=== PATIENT | female | born 1995 ===

== ENCOUNTER 2020-09-28 08:53 | Outpatient (REF) | payer OTHER, SELFPAY ==
[2020-09-28 09:50] LABS: MANUAL DIFF FLAG NO
[2020-09-28 10:03] LABS: Basophils Percent Auto 0.4 % (0-2); Eosinophils Absolute Auto 0.1 X10*3/uL (0.0-0.4); Eosinophils Percent Auto 1.5 % (0-4); Hematocrit 41.7 % (37-47); Hemoglobin 12.9 g/dl (12.0-16.0); Imm Gran Abs Auto 0.01 X10*3/uL (0.00-0.03); Imm Gran Pct Auto 0.2 % (0.0-0.4); Lymphocytes Percent Auto 38.5 % (20-40); Mean Corpuscular HGB Conc 30.9 g/dl (31.0-35.0); Mean Corpuscular Hemoglobin 25.6 pg (27.0-33.0); Mean Corpuscular Volume 82.9 fL (80-98); Mean Platelet Volume 10.6 fL (9.4-12.3); Monocytes Absolute Auto 0.3 X10*3/uL (0.1-1.2); Monocytes Percent Auto 6.5 % (2-11); Neutrophils Absolute Auto 2.8 X10*3/uL (2.0-8.3); Neutrophils Percent Auto 52.9 % (45-73); Platelet Count 366 X10*3/uL (160-400); Red Blood Count 5.03 X10*6/uL (4.20-5.50); Red Cell Distribution Width 13.2 % (11.0-16.0); White Blood Count 5.2 X10*3/uL (4.8-10.8)
[2020-09-28 10:35] LABS: Alanine Aminotransferase 13 U/L (0-31); Albumin Level 4.2 g/dL (3.5-5.0); Alkaline Phosphatase 77 U/L (39-117); Anion Gap 13 (12-20); Aspartate Amino Transferase 12 U/L (5-31); Bilirubin Total 0.7 mg/dL (0.0-1.0); Blood Urea Nitrogen 11 mg/dL (9-16); Calcium 9.2 mg/dL (8.4-10.2); Carbon Dioxide 24 mmol/L (22-29); Chloride 105 mmol/L (96-108); Estimated Glomerular Filt Rate > 60; Glucose Random 92 mg/dL (60-115); Iron 56 mcg/dL (30-160); Percent Iron Saturation 14 % (15-50); Potassium 4.3 mmol/L (3.3-5.1); Sodium 138 mmol/L (135-145); Total Iron Binding Capacity 389 mcg/dL (228-428); Total Protein 7.3 g/dL (6.5-8.0); Unsaturated Iron Binding 333 ug/dL
[2020-09-28 10:54] LABS: Vitamin B12 494 pg/mL (200-900)
== END 2020-09-28 08:54 | disposition home or self-care (01) ==
LOC: HO.LAB 08:53
PROVIDERS: PCP Family Medicine; Visit Provider Family Medicine
DX: R53.83 Other fatigue (principal)
CPT/HCPCS: 36415; 80053; 82607; 83540; 84443; 85025

== ENCOUNTER 2021-10-09 10:09 | Outpatient (REF) | payer OTHER, SELFPAY ==
[2021-10-09 11:22] LABS: MANUAL DIFF FLAG NO
[2021-10-09 11:32] LABS: Basophils Percent Auto 0.4 % (0-2); Eosinophils Absolute Auto 0.1 X10*3/uL (0.0-0.4); Eosinophils Percent Auto 0.9 % (0-4); Hematocrit 41.1 % (37.0-47.0); Hemoglobin 12.5 g/dl (12.0-16.0); Imm Gran Abs Auto 0.02 X10*3/uL (0.00-0.03); Imm Gran Pct Auto 0.4 % (0.0-0.4); Lymphocytes Absolute Auto 2.1 X10*3/uL (1.2-4.9); Lymphocytes Percent Auto 38.1 % (20-40); Mean Corpuscular HGB Conc 30.4 g/dl (31.0-35.0); Mean Corpuscular Hemoglobin 25.7 pg (27.0-33.0); Mean Corpuscular Volume 84.4 fL (80.0-98.0); Mean Platelet Volume 10.5 fL (9.4-12.3); Monocytes Absolute Auto 0.3 X10*3/uL (0.1-1.2); Monocytes Percent Auto 5.6 % (2-11); Neutrophils Percent Auto 54.6 % (45-73); Platelet Count 383 X10*3/uL (160-400); Red Blood Count 4.87 X10*6/uL (4.20-5.50); Red Cell Distribution Width 13.7 % (11.0-16.0); White Blood Count 5.4 X10*3/uL (4.8-10.8)
[2021-10-09 12:17] LABS: Alanine Aminotransferase 14 U/L (0-31); Albumin Level 4.3 g/dL (3.5-5.0); Alkaline Phosphatase 71 U/L (39-117); Anion Gap 11 (12-20); Aspartate Amino Transferase 14 U/L (5-31); Bilirubin Total 0.7 mg/dL (0.0-1.0); Blood Urea Nitrogen 11 mg/dL (9-16); Calcium 9.5 mg/dL (8.4-10.2); Carbon Dioxide 26 mmol/L (22-29); Chloride 107 mmol/L (96-108); Cholesterol 195 mg/dL; Estimated Glomerular Filt Rate > 60; Glucose Fasting 83 mg/dL (60-99); HDL Cholesterol 57 mg/dL; LDL Cholesterol Calculated 116 mg/dl; Potassium 4.9 mmol/L (3.3-5.1); Sodium 139 mmol/L (135-145); Total Protein 7.3 g/dL (6.5-8.0); Triglycerides 114 mg/dL
== END 2021-10-09 10:10 | disposition home or self-care (01) ==
LOC: HO.WFDLDS 10:09
PROVIDERS: Visit Provider Family Medicine
DX: Z00.00 Encounter for general adult medical examination without abnormal findings (principal); Z20.822 Contact with and (suspected) exposure to COVID-19
CPT/HCPCS: 80053; 80061; 84443; 85025; U0003; U0005

== ENCOUNTER 2022-12-19 12:28 | Outpatient (REF) | payer OTHER, SELFPAY ==
[2022-12-19 14:14] LABS: MANUAL DIFF FLAG NO
[2022-12-19 14:18] LABS: Appearance Urine Clear; Color Urine Yellow; Glucose Urine UA Negative (Negative); Leukocyte Esterase Urine Negative (Negative); Nitrite Urine Negative (Negative); Urine Blood Negative (Negative); Urine Ketones Negative (Negative); Urine Protein Negative (Neg-Trace)
[2022-12-19 14:26] LABS: Basophils Percent Auto 0.5 % (0-2); Eosinophils Absolute Auto 0.1 X10*3/uL (0.0-0.4); Eosinophils Percent Auto 1.1 % (0-4); Hematocrit 39.4 % (37.0-47.0); Hemoglobin 12.1 g/dl (12.0-16.0); Imm Gran Abs Auto 0.01 X10*3/uL (0.00-0.03); Imm Gran Pct Auto 0.2 % (0.0-0.4); Lymphocytes Absolute Auto 2.1 X10*3/uL (1.2-4.9); Lymphocytes Percent Auto 30.9 % (20-40); Mean Corpuscular HGB Conc 30.7 g/dl (31.0-35.0); Mean Corpuscular Hemoglobin 25.6 pg (27.0-33.0); Mean Corpuscular Volume 83.3 fL (80.0-98.0); Mean Platelet Volume 10.9 fL (9.4-12.3); Monocytes Absolute Auto 0.5 X10*3/uL (0.1-1.2); Monocytes Percent Auto 7.2 % (2-11); Neutrophils Percent Auto 60.1 % (45-73); Platelet Count 358 X10*3/uL (160-400); Red Blood Count 4.73 X10*6/uL (4.20-5.50); Red Cell Distribution Width 13.3 % (11.0-16.0); White Blood Count 6.6 X10*3/uL (4.8-10.8)
[2022-12-19 15:18] LABS: Creatinine Urine 67.97 mg/dL; Microalbumin Urine < 5.0 mg/L
[2022-12-19 15:19] LABS: Alanine Aminotransferase 16 U/L (0-31); Albumin Level 4.1 g/dL (3.5-5.0); Alkaline Phosphatase 64 U/L (39-117); Anion Gap 11 (12-20); Aspartate Amino Transferase 14 U/L (5-31); Blood Urea Nitrogen 10 mg/dL (9-16); Calcium 9.1 mg/dL (8.4-10.2); Carbon Dioxide 27 mmol/L (22-29); Chloride 109 mmol/L (96-108); Estimated Glomerular Filt Rate > 60; Glucose Fasting 72 mg/dL (60-99); Potassium 4.6 mmol/L (3.3-5.1); Sodium 142 mmol/L (135-145); Total Protein 6.8 g/dL (6.5-8.0)
== END 2022-12-19 12:29 | disposition home or self-care (01) ==
LOC: HO.WFDLDS 12:28
PROVIDERS: Visit Provider Family Medicine
DX: Z00.00 Encounter for general adult medical examination without abnormal findings (principal); I10 Essential (primary) hypertension
CPT/HCPCS: 36415; 80053; 81003; 82043; 84443; 85025

== ENCOUNTER 2023-01-02 14:53 | Outpatient (REF) | payer OTHER, SELFPAY ==
[2023-01-03 11:38] LABS: Appearance Urine Clear; Color Urine Yellow; Glucose Urine UA Negative (Negative); Leukocyte Esterase Urine Moderate (2+) (Negative); Nitrite Urine Negative (Negative); Specific Gravity - Urine 1.015 (1.005-1.025); UMIC TRIGGER UACC YES; Urine Blood Trace (Negative); Urine Ketones Negative (Negative); Urine Protein Trace mg/dL (Neg-Trace)
[2023-01-03 11:41] LABS: Bacteria Urine None Seen (None Seen); Hyaline Casts Urine 0-2 /LPF (0-2); Squamous Epithelial Cell Urine 0-2 /HPF (0-2); UACC Culture Trigger YES; WBC Urine >50 /HPF (0-5)
== END 2023-01-02 14:54 | disposition home or self-care (01) ==
LOC: HO.LAB 14:53
PROVIDERS: Visit Provider Nurse Practitioner Family
DX: N39.0 Urinary tract infection, site not specified (principal)
CPT/HCPCS: 81001; 87086; 87088; 87186

== ENCOUNTER 2023-02-25 08:02 | Outpatient (REF) | payer OTHER, SELFPAY ==
[2023-02-25 09:08] LABS: Appearance Urine Clear; Color Urine Yellow; Glucose Urine UA Negative (Negative); Leukocyte Esterase Urine Negative (Negative); Nitrite Urine Negative (Negative); PH 7.5 (5.0-9.0); Urine Blood Negative (Negative); Urine Ketones Negative (Negative); Urine Protein Negative (Neg-Trace)
[2023-02-25 09:51] LABS: Alanine Aminotransferase 13 U/L (0-31); Albumin Level 4.2 g/dL (3.5-5.0); Alkaline Phosphatase 67 U/L (39-117); Anion Gap 12 (12-20); Aspartate Amino Transferase 12 U/L (5-31); Bilirubin Total 0.8 mg/dL (0.0-1.0); Blood Urea Nitrogen 11 mg/dL (9-16); Carbon Dioxide 26 mmol/L (22-29); Chloride 106 mmol/L (96-108); Cholesterol 202 mg/dL; Estimated Glomerular Filt Rate > 60; Glucose Fasting 90 mg/dL (60-99); HDL Cholesterol 57 mg/dL; LDL Cholesterol Calculated 128 mg/dl; Potassium 4.1 mmol/L (3.3-5.1); Sodium 140 mmol/L (135-145); Total Protein 7.3 g/dL (6.5-8.0); Triglycerides 85 mg/dL
[2023-02-25 10:06] LABS: TSH reflex Free T4 1.22 uIU/mL (0.32-4.0)
[2023-02-27 08:19] LABS: Follicle Stimulating Hormone 8.1 mIU/mL; Lutenizing Hormone 6.3 mIU/mL
[2023-03-08 15:03] LABS: Estrogen 261.1 pg/mL
== END 2023-02-25 08:03 | disposition home or self-care (01) ==
LOC: HO.LAB 08:02
PROVIDERS: Nurse Practitioner Family; PCP Family Medicine; Visit Provider Family Medicine
DX: Z00.00 Encounter for general adult medical examination without abnormal findings (principal); N39.0 Urinary tract infection, site not specified
CPT/HCPCS: 36415; 80053; 80061; 81003; 82672; 83001; 83002; 84443

== ENCOUNTER 2023-07-19 14:30 | Outpatient (AMB) | payer OTHER, SELFPAY ==
[2023-07-19 14:37] VITALS: BP 118/78; PULSE 99; O2SAT 99; BMI 41.5
--- NOTE | 2023-07-19 14:37 | MHC.PC.OV ---
Vital Signs 07/19/23 14:37 Height 5 ft 3 in Weight 234 lb 8 oz BMI 41.5 BP 118/78 Blood Pressure Location Lt brachial Position Sitting Pulse 99 Pulse Source Pulse Oximeter Pulse Oximetry (%) 99 Oxygen Delivery Method Room Air Intake Visit Reasons: Pap Smear, r/s from 05/31, see comments Intake Note: Patient is here for a pap smear, rescheduled from May. She still would like to talk about breast reduction. Also, would like STD panel. Allergies No Known Allergies [No Known Allergies*] Allergy (Verified 07/19/23 14:40) Tobacco use date assessed: 07/19/23 HPI Pap Smear, r/s from 05/31, see comments HPI Details 28 y/o female presents today for a pap smear. She reports last pap smears was fine. She?does?not?know?the?date?of?her?last?menstrual?period.??She?is?not?currently?menstruating She reports ongoing neck and shoulder pain. [facility] Family History Father Diabetes mellitus Mother IBS (irritable bowel syndrome) Sister No problems noted. Daughter No problems noted. Social History Housing: House Patient Tobacco Use Status: Former Tobacco user e-Cigarette/Vaping Use: Never Used Second Hand Smoke Exposure: No service: No Current occupational status: employed Current occupation: [employer] Current occupational exposures/hazards: No Cognitive needs: No Hearing needs: No Vision needs: No Questionnaire Thrive Questionnaire Date Thrive assessed: 12/19/22 MILA-7 AMB Questionnaire MILA-7 Date MILA - 7 assessed: 12/19/22 Source: Developed by Drs. Jack Holman, Yahaira Rocha, Terrance Esteves and colleagues, with an educational mohamud from [employer]. Physical exam (Primary Care) Vital Signs: Last Vital Signs Pulse 99 07/19/23 14:37 BP 118/78 07/19/23 14:37 Pulse Ox 99 07/19/23 14:37 Oxygen Delivery Method Room Air 07/19/23 14:37 BMI result Body Mass Index 41.5 Tobacco/Smoking Status: Tobacco use Status Tobacco use date assessed 07/19/23 07/19/23 14:51 Patient Tobacco Use Status Former Tobacco user 07/19/23 14:51 e-Cigarette/Vaping Use Never Used 07/19/23 14:51 Thrive Assessment: Date of Thrive Assessment Date Thrive assessed 12/19/22 07/19/23 14:51 General: Yes Bimanual renal exam normal bilaterally and Yes no CVA tenderness External Female Exam: normal external appearance Speculum Exam - Vagina: normal appearance of the vagina Speculum Exam - Cervix: normal appearance of the cervix Bimanual exam- vagina & uterus: normal bimanual exam, uterine size normal, uterine shape normal, non-tender and no cervical motion tenderness Bimanual Exam- Adnexa, other: normal adnexae Back/Spine/Pelvis Back: no CVA tenderness Assessment and Plan Assessment & Plan (1) Screening for cervical cancer: Code(s): Z12.4 - Encounter for screening for malignant neoplasm of cervix Plan: Patient?presents?for?Pap?smear. Most?recent?Pap?smear?greater?than?3?years?ago.??She?says?this?was?normal.??She?is?not?aware?of?when?her?last?menstrual?period?was?but?she?is?not?menstruating?today. Speculum?exam?was?normal. Good?visualization?of?cervix?and?cervical?os?which?appeared?normal. Normal?bimanual?exam?with?normal-size?uterus,?no?cervical?motion?tenderness?and?normal?adnexa?bilaterally Pap?smear?sample?will?be?sent?to?the?lab (2) Cervicalgia: Code(s): M54.2 - Cervicalgia Plan: Chronic?neck?shoulder?and?upper?back?pain?and?strain for?which?she?has?tried?medical?management?and?chiropractic?therapy?without?resolution. We?had?discussed?a?referral?to?Plastic?surgery?for?breast?reduction?in?the?past?and?patient?would?like?to?move?forward?with?this. At?this?time?I?feel?it?is?medical?necessity?and?I?will?make?that?referral?and?send?a?letter?to?[facility]?plastic?surgery?department. (3) Shoulder pain: Code(s): M25.519 - Pain in unspecified shoulder Plan: As?above Orders: Orders Pap Smear Today Z12.4 - Encounter for screening for malignant neoplasm of cervix HPV E6/E7 RFLX AIDEN 16 18/45 Today Z12.4 - Encounter for screening for malignant neoplasm of cervix Coding Level of Care Code Est Pt Level 4 (04154) Diagnoses Screening for cervical cancer Z12.4 Cervicalgia M54.2 Shoulder pain M25.519
== END 2023-07-19 15:30 | disposition home or self-care (01) ==
PROVIDERS: PCP Family Medicine; Visit Provider Family Medicine
DX: Z12.4 Encounter for screening for malignant neoplasm of cervix (principal); M54.2 Cervicalgia; M25.519 Pain in unspecified shoulder
CPT/HCPCS: 99214

== ENCOUNTER 2023-07-19 15:19 | Outpatient (REF) | payer OTHER, SELFPAY ==
[2023-07-25 21:38] LABS: HPV mRNA E6/E7 rflx Not Detected (Not Detected)
== END 2023-07-19 15:20 | disposition home or self-care (01) ==
LOC: HO.LNP 15:19
PROVIDERS: Visit Provider Family Medicine
DX: Z12.4 Encounter for screening for malignant neoplasm of cervix (principal); Z11.51 Encounter for screening for human papillomavirus (HPV)
CPT/HCPCS: 87624; 88142

== ENCOUNTER 2023-07-19 15:19 | Outpatient (REF) | payer OTHER, SELFPAY | END 2023-07-19 15:20 | disposition home or self-care (01) | LOC: HO.LAB 15:19 | PROVIDERS: Visit Provider Family Medicine | DX: Z13.89 Encounter for screening for other disorder (principal) ==

== ENCOUNTER → 2024-04-30 09:05 | Outpatient (AMB) | payer OTHER, SELFPAY ==
--- NOTE | 2024-04-30 09:03 | A.OFFPC_ITS ---
Vital Signs 04/30/24 09:17 Height 5 ft 3 in Weight 219 lb 4 oz BMI 38.8 BP 102/66 Blood Pressure Location Rt brachial Position Sitting Respiration 14 Pulse 53 Pulse Source Pulse Oximeter Pulse Oximetry (%) 99 Oxygen Delivery Method Room Air Intake Visit Reasons: annual physicals Intake Note: Physical. Requesting STD test. 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 Her primary care physician is Dr. Edwards. The patient requests routine screenings for STIs. The patient requests referral to Plastic surgery to discuss breast reduction. She has been seeing a chiropractor for over a year for upper back, lower back and neck pain. She has also lost weight. She was 234 lb 07/31/2023, and today she is 219 lb. She has done this through increasing activity and portion control. She has persistent symptoms despite these interventions. She also sees a chiropractor for right hip pain. This started bothering her about 5 years ago after childbirth. He does adjustments with her hip that are usually very beneficial. He has an appointment with him tomorrow. She declines further evaluation with imaging referral to Orthopedics at this time, but if the symptoms become more persistent or do not respond to chiropractic intervention she will follow up with me about this. ADHD, anxiety-diagnosed by therapist and psychiatrist at [facility]. Treated with Adderall 5 mg as needed. 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 She is referred to Dr. Spivey today. She would like to restart control. She was on control pills for years without adverse effects up until her . Her periods are a little irregular. She started tracking them, and they happen every 6 weeks. She is agreeable to hCG level prior to initiating OCP. Denies personal or family history of heart attacks, strokes and blood clots. She does not use tobacco products. Patient endorses chronic diarrhea. This has been going on for years. Happens about every 3 days with multiple episodes per day affected. Frequency can vary. Sometimes she can identify triggers. If she eats a little bit of parm cheese she does not have a problem, but if she eats a lot it causes diarrhea. The same thing happens with pizza and marinara sauce. No blood in stools, unexplained weight loss, constipation or abdominal pain. Her father was diagnosed recently on colonoscopy as having 9 precancerous polyps. He is 52 years old. When she takes Imodium it alleviates symptoms temporarily. There is no known family history of inflammatory bowel disease. Her mother has IBS. ROS: Constitutional: No unexplained weight loss, fever, chills, fatigue or night sweats. Eyes: No vision changes, blurry vision, double vision, eye pain, eye redness, eye discharge. ENT: No hearing loss, sneezing, congestion, runny nose or sore throat. Respiratory: No shortness of breath, cough or sputum production. Cardiovascular: No chest pain, chest pressure or chest discomfort. No palpitations or pedal edema. Gastrointestinal: No anorexia, nausea, vomiting.. No abdominal pain or blood in stool. Genitourinary: No dysuria, hematuria, urinary frequency. Neurologic: No headache, dizziness, syncope, unilateral weakness, ataxia, numbness or tingling in the extremities. Musculoskeletal: see HPI Hematologic/Lymphatics: No bleeding or bruising. Skin: No rash Endocrine: No cold or heat intolerance. No polyuria or polydipsia. Psychiatric: No SI/HI. Physical exam: Constitutional: Alert, in no distress. Head: Normocephalic. Eyes: Pupils are equal, round and reactive to light. Extraocular muscles intact. Ear, Nose and Throat: Canals clear. TMs normal. Normal nasal mucosa. No nasal discharge. No oral lesions. Neck: Supple, Full range of motion. No lymphadenopathy. No palpable thyroid masses. Respiratory: Clear to auscultation. Cardiovascular: S1 S2 regular. No murmurs. Gastrointestinal: Abdomen soft, non-tender, non-distended. Normal bowel sounds. No palpable masses. Neurologic: No focal neurological deficits. Symmetric patellar reflexes. Moves all extremities spontaneously. Sensation intact bilaterally. Skin: No rashes. Musculoskeletal: No swelling, deformity or erythema. Extremities: Warm and well perfused. No clubbing, cyanosis or edema. 3+ peripheral pulses bilaterally. Psychiatric: Normal mood and affect [facility] Medical History (Updated 04/30/24 @ 13:44 by LENNOX Overton) control counseling ADHD Family history of colonic polyps Diarrhea Macromastia Family History Father Diabetes mellitus Mother IBS (irritable bowel syndrome) Sister No problems noted. Daughter No problems noted. Social History Housing: House Patient Tobacco Use Status: Former Tobacco user e-Cigarette/Vaping Use: Never Used Second Hand Smoke Exposure: No service: No Current occupational status: employed Current occupation: [employer] Current occupational exposures/hazards: No Cognitive needs: No Hearing needs: No Vision needs: No Questionnaire PHQ-9 Over the last 2 weeks, how often have you been bothered by any of the following problems? 1. Little interest or pleasure in doing things: not at all 2. Feeling down, depressed, or hopeless: not at all 3. Trouble falling or staying asleep, or sleeping too much: several days 4. Feeling tired or having little energy: several days 5. Poor appetite or overeating: not at all 6. Feeling bad about yourself - or that you are a failure or have let yourself or your family down: not at all 7. Trouble concentrating on things, such as reading the newspaper or watching television: not at all 8. Moving or speaking so slowly that other people could have noticed. Or the opposite - being so fidgety or restless that you have been moving around a lot more than usual: not at all 9. Thoughts that you would be better off or of hurting yourself in some way: not at all Total score: 2 Depression Screening Interpretation: Positive Depression Screening Done: Yes 83988 - PHQ-9 Billing: Yes Source: Developed by Drs. Jack Holman, Yahaira Rocha, Terrance Esteves and colleagues, with an educational mohamud from [employer]. Thrive Questionnaire Date Thrive assessed: 04/30/24 I am a: Parent/Caregiver What is your living situation today?: I have a steady place to live Within the past 12 months, did the food you bought not last and you didn't have the money to get more?: Sometimes True Within the past 12 months, did you worry whether your food would run out before you got money to buy more?: Sometimes True Do you have trouble paying for medicines?: No Do you have trouble getting transportation to medical appointments?: No Do you have trouble paying your heating and electricity bill?: No Do you have trouble taking care of your child, family member or friend?: No Do you have trouble with day-to-day activities such as bathing, preparing meals, shopping, managing finances, etc.?: No Are you currently unemployed and looking for a job?: No Are you interested in more education?: No Please select the resources that you would like help with: None Currently or been in a relationship where the following occur: No concerns reported THRIVE Score: 2 AUDIT C Alcohol Use Questionnaire (AUDIT-C) 1. How often do you have a drink containing alcohol?: Monthly or less 2. How many drinks containing alcohol do you have on a typical day when you are drinking?: 1 or 2 3. How often do you have six or more drinks on one occasion?: Monthly Total Score: 3 MILA-7 AMB Questionnaire MILA-7 Date MILA - 7 assessed: 04/30/24 Feeling nervous, anxious, or on edge: 0 = Not at all Not being able to stop or control worryin = Not at all Worrying too much about different things: 0 = Not at all Trouble relaxin = Several days Being so restless that it is hard to sit still: 0 = Not at all Becoming easily annoyed or irritable: 1 = Several days Feeling afraid as if something awful might happen: 0 = Not at all Total MILA-7 score (0-4 normal; 5-9 mild; 10-14 moderate; 15-21 severe): 2 Source: Developed by Drs. Jack Holman, Yahaira Rocha, Terrance Esteves and colleagues, with an educational mohamud from [employer] MILA-7 Assessment Billing MILA-7 Assessment Tool: MILA-7 Assessment 30076 Physical exam (Primary Care) Vital Signs: Last Vital Signs Pulse 53 04/30/24 09:17 Resp 14 04/30/24 09:17 BP 102/66 04/30/24 09:17 Pulse Ox 99 04/30/24 09:17 Oxygen Delivery Method Room Air 04/30/24 09:17 BMI result Body Mass Index 38.8 Tobacco/Smoking Status: Tobacco use Status Tobacco use date assessed 04/30/24 04/30/24 09:04 Patient Tobacco Use Status Former Tobacco user 04/30/24 09:04 e-Cigarette/Vaping Use Never Used 04/30/24 09:04 PHQ-9: PHQ-9 Score PHQ-9: Total score 2 04/30/24 09:55 Depression Screening Interpretation: Positive Thrive Assessment: Date of Thrive Assessment Date Thrive assessed 04/30/24 04/30/24 09:25 Currently or been in a relationship where the following occur: No concerns reported Assessment and Plan Assessment & Plan (1) Routine physical examination: Code(s): Z00.00 - Encounter for general adult medical examination without abnormal findings Plan: Patient is seen today for a routine physical. As part of this visit we reviewed the following issues, which are considered and essential part of preventative health in this age group: - Breast Cancer screening - Annual Nutrition Counselor exam - Blood pressure screening - Cholesterol screening - Osteoporosis prevention including calcium/vitamin D intake, weight bearing exercise & smoking cessation - Nutritional and exercise counseling - Counseling of injury prevention including fire prevention, smoke alarms and seat belt usage - Prevention of and/or testing for infectious diseases - Education about skin cancer - Recommendations about immunizations - Recommendation of an eye exam - Screening for substance abuse Family history of colon polyps, diarrhea Refer to Gastroenterology. Recommended trial of dairy free diet for 2 weeks. If symptoms resolve incorporate dairy back into the diet to see if symptoms return. If this is the case she may have lactose intolerance and need to avoid lactose products indefinitely. Check labs. Recommended trial of probiotic like Culturelle. Avoid processed foods whenever possible. Drink plenty of water. The patient is counseled on oral contraceptives. Referred for gynecologic exam. Check HCG level. If negative I will prescribe OCP for patient. Side effects reviewed in detail including weight weight gain, increased risk of cardiovascular events and blood clots. Signs and symptoms of these conditions reviewed with the patient. Do not smoke cigarettes while using control. Macromastia See HPI. Referred to Plastic surgery. ADHD Continue management per therapist and psychiatrist. Follow up in 1 year for physical exam. (2) Family history of colonic polyps: Code(s): Z83.719 - Family history of colon polyps, unspecified (3) Diarrhea: Code(s): R19.7 - Diarrhea, unspecified Qualifiers: Diarrhea type: functional diarrhea Qualified Code(s): K59.1 - Functional diarrhea (4) Macromastia: Code(s): N62 - Hypertrophy of breast (5) ADHD: Code(s): F90.9 - Attention-deficit hyperactivity disorder, unspecified type (6) control counseling: Code(s): Z30.09 - Encounter for other general counseling and advice on contraception Orders: Orders HIV Ab/Ag Today Z00.00 - Encounter for general adult medical examination without abnormal findings, Z11.3 - Encounter for screening for infections with a predominantly sexual mode of transmission, Z13.6 - Encounter for screening for cardiovascular disorders CT NG by PCR Today Z00.00 - Encounter for general adult medical examination without abnormal findings, Z11.3 - Encounter for screening for infections with a predominantly sexual mode of transmission, Z13.6 - Encounter for screening for cardiovascular disorders Complete Blood Count Auto Diff Today Z00.00 - Encounter for general adult medical examination without abnormal findings, Z11.3 - Encounter for screening for infections with a predominantly sexual mode of transmission, Z13.6 - Encoun ter for screening for cardiovascular disorders Immunoglobulin A Today R19.7 - Diarrhea, unspecified TSH reflex Free T4 Today R19.7 - Diarrhea, unspecified Hepatitis C Antibody Today Z00.00 - Encounter for general adult medical examination without abnormal findings, Z11.3 - Encounter for screening for infections with a predominantly sexual mode of transmission, Z13.6 - Encounter for screening for cardiovascular disorders Syphilis Screen Today Z00.00 - Encounter for general adult medical examination without abnormal findings, Z11.3 - Encounter for screening for infections with a predominantly sexual mode of transmission, Z13.6 - Encounter for screening for cardiovascular disorders Lipid Panel Today Z00.00 - Encounter for general adult medical examination without abnormal findings, Z11.3 - Encounter for screening for infections with a predominantly sexual mode of transmission, Z13.6 - Encounter for screening for cardiovascular disorders Comprehensive Met. Panel Today Z00.00 - Encounter for general adult medical examination without abnormal findings, Z11.3 - Encounter for screening for infections with a predominantly sexual mode of transmission, Z13.6 - Encounter for screening for cardiovascular disorders Endomysial IgA rflx Titer Today R19.7 - Diarrhea, unspecified Transglutaminase Ab IgG Today R19.7 - Diarrhea, unspecified HCG Quantitative Today Z32.02 - Encounter for test, result negative Referrals Gastroenterology Referral R19.7 - Diarrhea, unspecified, Z83.719 - Family history of colon polyps, unspecified RN CARDIOLOGY Referral Z01.419 - Encounter for gynecological examination (general) (routine) without abnormal findings Plastic Surgery Referral N62 - Hypertrophy of breast Coding Level of Care Code Est Pt Level 3 (44721) Est Pt Prev Care 18-39y(66531) Diagnoses Routine physical examination Z00.00 Family history of colonic polyps Z83.719 Functional diarrhea K59.1 Diarrhea type: functional diarrhea Macromastia N62 ADHD F90.9 control counseling Z30.09 Additional Codes MILA-7 Assessment Billing - MILA-7 Assessment Tool: MILA-7 Assessment 32495 ([id number])
[2024-04-30 09:17] VITALS: BP 102/66; PULSE 53; RESP 14; O2SAT 99; BMI 38.8
== END ==
PROVIDERS: PCP Family Medicine; Visit Provider Physician Assistant Medical
DX: Z00.00 Encounter for general adult medical examination without abnormal findings (principal); Z30.09 Encounter for other general counseling and advice on contraception; K59.1 Functional diarrhea; F90.9 Attention-deficit hyperactivity disorder, unspecified type; N62 Hypertrophy of breast; Z83.719 Family history of colon polyps, unspecified

== ENCOUNTER → 2024-04-30 09:05 | Outpatient (BNVA) | payer OTHER, SELFPAY | PROVIDERS: PCP Family Medicine; Visit Provider Physician Assistant Medical | DX: Z00.00 Encounter for general adult medical examination without abnormal findings (principal); K59.1 Functional diarrhea; N62 Hypertrophy of breast; F90.9 Attention-deficit hyperactivity disorder, unspecified type; Z83.719 Family history of colon polyps, unspecified | CPT/HCPCS: 96127 ==

== ENCOUNTER 2024-04-30 09:53 | Outpatient (REF) | payer OTHER, SELFPAY ==
[2024-04-30 12:36] LABS: Alanine Aminotransferase 20 U/L (0-31); Albumin Level 4.2 g/dL (3.5-5.0); Alkaline Phosphatase 57 U/L (39-117); Anion Gap 12 (12-20); Aspartate Amino Transferase 17 U/L (5-31); Bilirubin Total 0.6 mg/dL (0.0-1.0); Blood Urea Nitrogen 9 mg/dL (9-16); Calcium 8.7 mg/dL (8.4-10.2); Carbon Dioxide 22 mmol/L (22-29); Chloride 110 mmol/L (96-108); Cholesterol 195 mg/dL (<200); Estimated Glomerular Filt Rate > 60; Glucose Random 85 mg/dL (60-115); HDL Cholesterol 60 mg/dL (>40); LDL Cholesterol Calculated 121 mg/dL (<100); Potassium 4.1 mmol/L (3.3-5.1); Sodium 140 mmol/L (135-145); Total Protein 7.2 g/dL (6.5-8.0); Triglycerides 74 mg/dL (<150)
[2024-04-30 12:38] LABS: Syphilis Screen Nonreactive (Nonreactive)
[2024-04-30 12:40] LABS: HCG Quantitative < 2 mIU/mL; TSH reflex Free T4 0.79 uIU/mL (0.32-4.0)
[2024-04-30 12:43] LABS: ~HepC Num1 0.14 S/CO (0.00-0.79); ~Hepatitis C Antibody Nonreactive (Nonreactive)
[2024-05-01 21:18] LABS: Transglutaminase Ab IgG <1.0 U/mL
[2024-05-04 10:22] LABS: Immunoglobulin A 295 mg/dL (47-310)
[2024-05-05 23:24] LABS: Endomysial IgA Antibody Negative (Negative)
== END 2024-04-30 09:54 | disposition home or self-care (01) ==
LOC: HO.WFDLDS 09:53
PROVIDERS: Visit Provider Physician Assistant Medical
DX: Z00.00 Encounter for general adult medical examination without abnormal findings (principal); Z11.3 Encounter for screening for infections with a predominantly sexual mode of transmission; Z13.6 Encounter for screening for cardiovascular disorders; R19.7 Diarrhea, unspecified
CPT/HCPCS: 36415; 80053; 80061; 82784; 84443; 84702; 86231; 86364; 86780; 86803

== ENCOUNTER 2024-09-11 08:42 | Outpatient (AMB) | payer OTHER, SELFPAY ==
[2024-09-11 08:43] VITALS: BP 120/64; PULSE 86; O2SAT 96; BMI 38.3
--- NOTE | 2024-09-11 08:43 | MHC.OFFVIS ---
Vital Signs 09/11/24 08:43 Height 5 ft 3 in Weight 216 lb 0.848 oz BMI 38.3 BP 120/64 Blood Pressure Location Rt brachial Position Sitting Pulse 86 Pulse Source Pulse Oximeter Pulse Oximetry (%) 96 Oxygen Delivery Method Room Air Intake Visit Reasons: Diarrhea & Family history of colon polyps Intake Note: NEW PATIENT for diarrhea, initial consult. Prior hx of colo/egd? N. Pertinent Fmhx. Chief Complaint; Pt reports diarrhea, fecal abnormalities / inconsistencies, abd pain (B/L LQ), GERD w/o dysphagia. Pt is avoiding trigger foods as much as possible w/o much relief. [employer] Supervisor Required: No Accompanied by: Self / Same As Patient Allergies No Known Allergies [No Known Allergies*] Allergy (Verified 09/11/24 08:43) HPI HPI Diarrhea & Family history of colon polyps: Details: 29 years old female with past medical history of ADHD, anxiety, no significant medical history is here today for initial consultation. Patient reports frequent loose stools postprandially. Patient reports that loose stools are related to her eating cheese sometimes. Patient states that she tries to take Lactaid. Sometimes does help and sometimes she still have loose stool. Patient reports that her mom and her grandfather have IBS. Patient denies any epigastric pain, however will have occasional acid reflux. Denies any dyspepsia, dysphagia or odynophagia. Patient denies abdominal bloating, cramping in the left lower quadrant and right lower quadrant. Patient reports that when she has diarrhea she usually feels like she empties her bowels completely. Patient tries to drink water and stay hydrated throughout the day. Denies it he does or vomiting. Denies melena, hematochezia, unintentional weight loss or ribbon like stools. Patient reports that her father had polyps on colonoscopy. No family history of IBD. [facility] Medical History control counseling ADHD Family history of colonic polyps Diarrhea Macromastia Family History Father Diabetes mellitus Mother IBS (irritable bowel syndrome) Sister No problems noted. Daughter No problems noted. Social History Housing: House Alcohol intake: current Comment: Socially Patient Tobacco Use Status: Never used Tobacco e-Cigarette/Vaping Use: Never Used Second Hand Smoke Exposure: No Substance Use Type: Marijuana service: No Current occupational status: employed Current occupation: [employer] Current occupational exposures/hazards: No Cognitive needs: No Hearing needs: No Vision needs: No Review of Systems Const Denies weight gain and Denies weight loss ENT Reports no additional complaints, Denies dysphagia and Denies odynophagia Card Reports no additional complaints Resp Reports no additional complaints GI Reports abdominal pain (RLQ, LLQ), Denies belching, Denies melena, Denies bloating, Denies change in bowel habits, Reports GI cramping, Denies dysphagia, Denies excessive flatus, Denies dyspepsia, Reports heartburn (Occasional), Denies diarrhea, Reports loose stools, Denies nausea, Denies odynophagia and Denies vomiting Reports no additional complaints Musc Reports no additional complaints Neuro Reports no additional complaints Psych Reports no additional complaints Endo Reports no additional complaints Physical Exam Const General: healthy appearing and no acute distress Nutritional Appearance: obese Orientation/consciousness: patient oriented x3 Resp Effort & Inspection: normal respiratory effort, able to speak in complete sentences, no tracheal deviation and symmetric chest movement Auscultation: clear to auscultation bilaterally Cardio Rate: regular rate GI Inspection: Yes normal to inspection, No distended and Yes obesity Palpation (GI): Soft to palpation, not firm, nontender and No hepatosplenomegaly present Auscultation: normal bowel sounds General: Yes no CVA tenderness Back/Spine/Pelvis Back: no CVA tenderness Skin General skin exam: elasticity normal, turgor normal and dry skin Neuro General: patient oriented x3 Psych Appearance: grossly normal Mental Status: mental status grossly normal Assessment & Plan Assessment & Plan (1) Postprandial diarrhea: Code(s): K52.9 - Noninfective gastroenteritis and colitis, unspecified (2) LLQ abdominal pain: Code(s): R10.32 - Left lower quadrant pain (3) RLQ abdominal pain: Code(s): R10.31 - Right lower quadrant pain (4) GERD (gastroesophageal reflux disease): Code(s): K21.9 - Gastro-esophageal reflux disease without esophagitis Qualifiers: Esophagitis presence: esophagitis presence not specified Qualified Code(s): K21.9 - Gastro-esophageal reflux disease without esophagitis Plan Patient will try to take fiber with pre and probiotics. Avoid dietary triggers. Try lactose free products. Went over with patient different products available for her to try. Will rule out IBD, celiac, malabsorption. Discussed with patient low FODMAP diet. List of food recommended as well as list of food to avoid given to patient. Patient will follow-up in the office in 4 months. If symptoms continue we will send her for upper endoscopy and colonoscopy. Patient does report occasional acid reflux when eating late at night. Patient was encouraged to stay upright for minimum 3 hours after meals. Patient is agreeable to current plan of care and verbalizes understanding of instructions. She was given the opportunity to ask questions and all questions answered. Thank you for allowing me to participate in her care Orders: Orders C Reactive Protein Today K58.9 - Irritable bowel syndrome, unspecified Transglutaminase IgA Today R10.9 - Unspecified abdominal pain Vitamin B12 and Folate Today R19.7 - Diarrhea, unspecified Vitamin D 25-OH (D2 and D3) Today E55.9 - Vitamin D deficiency, unspecified Coding Level of Care Code New Pt Level 3 (56969) Diagnoses Postprandial diarrhea K52.9 LLQ abdominal pain R10.32 RLQ abdominal pain R10.31 Gastroesophageal reflux disease, unspecified whether esophagitis present K21.9 Esophagitis presence: esophagitis presence not specified Time Spent (min) 40 Comment 30 minutes spent with patient and additional 10 minutes spent reviewing her records
--- OUTSIDE RECORDS SUMMARY | 2024-09-11 08:55 | XMS_ITS | Clinical Summary ---
Author Organization [facility] ity Address [address] [place] [address] Care Team Providers Care Instructional Technology Director Name Role Phone Unavailable Primary Care Provider Unavailabl e Surgical History Surgery Date Site/Laterality Comments WISDOM TOOTH EXTRACTION PROCEDURE: HISTORICAL WISDOM TEETH EXTRACTION Family History Medical History Relation Name Comments Breast cancer Neg Hx Colon cancer Neg Hx Ovarian cancer Neg Hx Prostate cancer Neg Hx Social History Tobacco Use Types Packs/Day Years Used Date Smoking Tobacco: Never Smokeless Tobacco: Never Sex and Gender Information Value Date Recorded Sex Assigned at Not on file Gender Identity Not on file Sexual Orientation Not on file Obstetrics History Plan of Treatment Health Maintenance Due Date Last Done Comments Hepatitis B Vaccines (1 of 3 - 19+ 3-dose series) 2013 Cervical Cancer Screening: P ap Smear 2015 COVID-19 Vaccine ( - 2023-2 5 season) 2024 Influenza Vaccine (#1) 2024 DTaP,Tdap,and Td Vaccines (2 - Td or Tdap) 05/21/2028 05/21/2018 HIB Vaccines Aged Out No longer eligi ble based on patient's age to complete this topic HPV Vaccines Aged Out No longer eligi ble based on patient's age to complete this topic Hepatitis A Vaccines Aged Out No long er eligible based on patient's age to complete this topic IPV Vaccines Aged Out No longer eligi ble based on patient's age to complete this topic MMR Vaccines Aged Out No longer eligi ble based on patient's age to complete this topic Meningococcal ACWY Vaccine Aged Out N o longer eligible based on patient's age to complete this topic Pneumococcal Vaccine: Pediat rics (0 to 5 Years) and At-Risk Patients (6 to 64 Years) Aged Out No longer eligi ble based on patient's age to complete this topic RSV Immunization Patients Un alysa 20 months Aged Out No longer eligible b ased on patient's age to complete this topic Varicella Vaccines Aged Out No longer eligible based on patient's age to complete this topic
== END 2024-09-11 09:22 | disposition home or self-care (01) ==
PROVIDERS: PCP Family Medicine; Visit Provider Nurse Practitioner Family
DX: K52.9 Noninfective gastroenteritis and colitis, unspecified (principal); R10.32 Left lower quadrant pain; R10.31 Right lower quadrant pain; K21.9 Gastro-esophageal reflux disease without esophagitis
CPT/HCPCS: 99203

== ENCOUNTER 2024-09-11 08:42 | Outpatient (REF) | payer OTHER, SELFPAY ==
--- OUTSIDE RECORDS SUMMARY | 2024-09-11 09:55 | XMS_ITS | Clinical Summary ---
Author Organization [facility] ity Address [address] [place] [address] Care Team Providers Care Supervisor [employer] Name Role Phone Unavailable Primary Care Provider [...]
[2024-09-11 11:08] LABS: C Reactive Protein 0.39 mg/dL (< or = 0.50)
[2024-09-11 11:38] LABS: Folate 12.7 ng/mL (> or = 4.0); Vitamin B12 302 pg/mL (200-900)
[2024-09-14 16:33] LABS: Transglutaminase IgA <1.0 U/mL
[2024-09-16 15:44] LABS: Vitamin D 25-OH, D2 <4 ng/mL; Vitamin D 25-OH, D3 15 ng/mL; Vitamin D 25-OH, Total 15 ng/mL (30-100)
== END 2024-09-11 08:43 | disposition home or self-care (01) ==
LOC: HO.LAB 08:42
PROVIDERS: PCP Family Medicine; Visit Provider Nurse Practitioner Family
DX: K58.9 Irritable bowel syndrome, unspecified (principal); E55.9 Vitamin D deficiency, unspecified; R10.9 Unspecified abdominal pain; R19.7 Diarrhea, unspecified
CPT/HCPCS: 36415; 82306; 82607; 82746; 86140; 86364

== ENCOUNTER 2025-04-09 13:51 | Outpatient (AMB) | payer OTHER, SELFPAY ==
--- NOTE | 2025-04-09 13:54 | MHC.PC.OV ---
Vital Signs 04/09/25 13:59 Height 5 ft 3 in Weight 209 lb BMI 37.0 BP 108/70 Blood Pressure Location Lt brachial Position Sitting Respiration 14 Pulse 77 Pulse Source Pulse Oximeter Temp 98.4 F Temp Source Temporal Artery Scan Pulse Oximetry (%) 99 Oxygen Delivery Method Room Air Intake Visit Reasons: STD panel and urine testing. Intake Note: Trang presents in the office today for STD Screening and Urine Testing. Allergies No Known Allergies (No Known Allergies*) Allergy (Verified 04/09/25 14:00) Medication List - Last Reconciled 04/09/25 by Lashanda Kendall, MEDICAL ASSISTANT DERMATOLOGY- cholecalciferol (vitamin D3) 125 mcg PO DAILY desogestrel-ethinyl estradiol 0.15-0.03 mg (Apri) 1 tab PO DAILY dextroamphetamine-amphetamine 5 mg (Adderall) 5 mg PO DAILY [probiotic .] valacyclovir 500 mg PO Q12H PRN Tobacco use date assessed: 04/09/25 Dental Screening Dental Screen Date: 04/09/25 Did you have a dental visit in the last 12 months?: Yes Did you have a dental problem in the last 6 months where you did not have access to dental care?: No Was dental information given to patient?: Patient has dentist HPI HPI Comments History of Present Illness Details 30-year-old female with a past medical history of anxiety, ADHD, macromastia and obesity History of Present Illness - The patient is a 30-year-old female presenting for STD screening. Has no sx, no new sex partners. Has mild vaginal dc but this is no unusual Not having protected sex, chance for . Though has not yet been able to conceive. Irregular period last month. Review of Systems - Genitourinary: Reports minimal, non-irregular vaginal discharge. Denies urinary tract infection symptoms. - Menstrual: Reports irregular periods due to stress. Denies symptoms. Physical Exam General: Well developed, well nourished, in no acute distress. Appears stated age. Head: Normocephalic, atraumatic. Eyes: Pupils are equal, round and reactive to light and accommodation. Conjunctivae are clear. Lungs: Clear to auscultation bilaterally. No rales, rhonchi or wheeze noted. Good air flow in all pat. Heart: Regular rate and rhythm. No murmurs, click, rubs or gallops are noted. Abdomen: Bowel sounds present in all quadrants. The abdomen is soft, nontender, with no masses or organomegaly noted. No hernias are noted. Psych: Mood and affect appropriate Results Pending Discussion Notes The patient and I discussed the screening process for sexually transmitted diseases, including urine testing for gonorrhea and chlamydia, and the option for additional blood tests for HIV and syphilis. I explained the increasing prevalence of syphilis and the benefits of comprehensive screening. I confirmed the availability of results via our patient portal, emphasizing that due to timing, results may be delayed until after the weekend. We reviewed the patient's choice of pharmacy for any necessary prescriptions. I also noted there are no allergies to penicillin. We discussed the current situation regarding her menstrual irregularity, dismissal of immediate concerns, and the possibility of infertility, given her long-standing relationship without conception. Follow-up plans include me posting results on the patient portal, with an alert to the patient for any positive findings. Patient was given time to ask questions. All questions were answered to their satisfaction. Assessment and Plan 1. Sexually Transmitted Diseases (Screening) - Urine tests for gonorrhea, chlamydia. - Blood tests for HIV, syphilis to be done today - Results reviewed via patient portal. - check Preg test Patient Instructions - Use the patient portal to check the results. - Attend to the lab for blood tests if desired. - Return to the commercial front load operator for any needed lab forms. - Contact us through the portal for any immediate concerns or questions. Consent Patient was informed and verbally consented to the use of an ambient scribe for clinic note documentation during this visit. Total time spent caring for the patient today was 25 minutes. This includes time spent before the visit reviewing the chart, time spent during the visit, and time spent after the visit on documentation, reviewing laboratory results, diagnostic imaging, medications, performing a medically necessary evaluation, counseling on diagnoses, care coordination, ordering appropriate tests, ordering appropriate medications, review of tests performed by other providers, reporting test results with the patient, communication with other healthcare providers. [facility] Medical History control counseling ADHD Family history of colonic polyps Diarrhea Macromastia Family History (Updated 04/09/25 @ 14:01 by Kristal Escamilla MA) Father Diabetes mellitus Mother IBS (irritable bowel syndrome) Sister No problems noted. Daughter No problems noted. Social History (Updated 04/09/25 @ 14:01 by Kristal Escamilla MA) Housing: House Alcohol intake: current Comment: Socially Patient Tobacco Use Status: Never used Tobacco e-Cigarette/Vaping Use: Never Used Second Hand Smoke Exposure: No Substance Use Type: Marijuana service: No Current occupational status: employed Current occupation: [employer] Current occupational exposures/hazards: No Cognitive needs: No Hearing needs: No Vision needs: No Questionnaire PHQ-9 Over the last 2 weeks, how often have you been bothered by any of the following problems? 1. Little interest or pleasure in doing things: not at all 2. Feeling down, depressed, or hopeless: not at all 3. Trouble falling or staying asleep, or sleeping too much: not at all 4. Feeling tired or having little energy: several days 5. Poor appetite or overeating: not at all 6. Feeling bad about yourself - or that you are a failure or have let yourself or your family down: not at all 7. Trouble concentrating on things, such as reading the newspaper or watching television: several days 8. Moving or speaking so slowly that other people could have noticed. Or the opposite - being so fidgety or restless that you have been moving around a lot more than usual: not at all 9. Thoughts that you would be better off or of hurting yourself in some way: not at all Total score: 2 Source: Developed by Drs. Jack Holman, Yahaira Rocha, Terrance Esteves and colleagues, with an educational mohamud from [employer]. Thrive Questionnaire Date Thrive assessed: 04/30/24 I am a: Patient What is your living situation today?: I have a steady place to live Within the past 12 months, did the food you bought not last and you didn't have the money to get more?: Sometimes True Within the past 12 months, did you worry whether your food would run out before you got money to buy more?: Never true Do you have trouble paying for medicines?: No Do you have trouble getting transportation to medical appointments?: No Do you have trouble paying your heating and electricity bill?: No Do you have trouble taking care of your child, family member or friend?: No Do you have trouble with day-to-day activities such as bathing, preparing meals, shopping, managing finances, etc.?: No Are you currently unemployed and looking for a job?: No Are you interested in more education?: No Please select the resources that you would like help with: None Currently or been in a relationship where the following occur: No concerns reported THRIVE Score: 1 AUDIT C Alcohol Use Questionnaire (AUDIT-C) 1. How often do you have a drink containing alcohol?: Monthly or less 2. How many drinks containing alcohol do you have on a typical day when you are drinking?: 1 or 2 3. How often do you have six or more drinks on one occasion?: Never Total Score: 1 MILA-7 AMB Questionnaire MILA-7 Date MILA - 7 assessed: 04/30/24 Feeling nervous, anxious, or on edge: 1 = Several days Not being able to stop or control worryin = Several days Worrying too much about different things: 1 = Several days Trouble relaxin = Not at all Being so restless that it is hard to sit still: 0 = Not at all Becoming easily annoyed or irritable: 1 = Several days Feeling afraid as if something awful might happen: 0 = Not at all Total MILA-7 score (0-4 normal; 5-9 mild; 10-14 moderate; 15-21 severe): 4 Source: Developed by Drs. Jack Holman, Yahaira Rocha, Terrance Esteves and colleagues, with an educational mohamud from [employer]. Physical exam (Primary Care) Vital Signs: Last Vital Signs Temp 98.4 F 04/09/25 13:59 Pulse 77 04/09/25 13:59 Resp 14 04/09/25 13:59 BP 108/70 04/09/25 13:59 Pulse Ox 99 04/09/25 13:59 Oxygen Delivery Method Room Air 04/09/25 13:59 BMI result Body Mass Index 37.0 Tobacco/Smoking Status: Tobacco use Status Tobacco use date assessed 04/09/25 04/09/25 14:03 Patient Tobacco Use Status Never used Tobacco 04/09/25 14:01 e-Cigarette/Vaping Use Never Used 04/09/25 14:01 PHQ-9: PHQ-9 Score PHQ-9: Total score 2 04/09/25 14:23 Thrive Assessment: Date of Thrive Assessment Date Thrive assessed 04/30/24 04/09/25 13:55 Currently or been in a relationship where the following occur: No concerns reported Coding Level of Care Code Est Pt Level 4 (89723) Complex EM visit Add On G2211 Diagnoses Encounter for assessment of STD exposure Z20.2 Amenorrhea N91.2 Vaginal discharge N89.8 Assessment & Plan Assessment & Plan (1) Encounter for assessment of STD exposure: Code(s): Z20.2 - Contact with and (suspected) exposure to infections with a predominantly sexual mode of transmission (2) Amenorrhea: Code(s): N91.2 - Amenorrhea, unspecified Category: Medical (3) Vaginal discharge: Code(s): N89.8 - Other specified noninflammatory disorders of vagina Plan . Orders: Orders HCG Quantitative Today FAREED [place] N91.2 - Amenorrhea, unspecified UA CC w/rflx Micro + Cult Today FAREED [place] R30.0 - Dysuria Medications: Changed From valacyclovir 500 mg PO Q12H 14 days 28 tabs 1RF To valacyclovir 500 mg PO Q12H PRN Skyler Edwards MD
--- OUTSIDE RECORDS SUMMARY | 2025-04-09 13:55 | XMS_ITS | Clinical Summary ---
Author Organization [facility] ity Address [address] [place] [address] Care Team Providers Care Dye Tank Tender Name Role Phone Unavailable Primary Care Provider Unavailabl e Surgical History Surgery Date Site/Laterality Comments WISDOM TOOTH EXTRACTION PROCEDURE: HISTORICAL WISDOM TEETH EXTRACTION Family History Medical History Relation Name Comments Breast cancer Neg Hx Colon cancer Neg Hx Ovarian cancer Neg Hx Prostate cancer Neg Hx Social History Tobacco Use Types Packs/Day Years Used Date Smoking Tobacco: Never Smokeless Tobacco: Never Comments Unknown Sex and Gender Information Value Date Recorded Sex Assigned at Not on file Legal Sex Female 7:06 AM EST Gender Identity Not on file Sexual Orientation Not on file Obstetrics History Plan of Treatment Health Maintenance Due Date Last Done Comments Hepatitis B Vaccines (1 of 3 - 19+ 3-dose series) 2013 Cervical Cancer Screening: P ap Smear 2015 COVID-19 Vaccine ( - 2023-2 5 season) 2024 Depression Screening 08/12/2024 Influenza Vaccine (#1) 2025 DTaP,Tdap,and Td Vaccines (2 - Td or [...] patient's age to complete this topic Meningococcal B Vaccine Aged Out No l onger eligible based on patient's age to complete this topic Pneumococcal Vaccine: Pediat rics (0 to 5 Years) and At-Risk Patients (6 to 49 Years) Aged Out No longer eligi ble based on patient's age to complete this topic RSV Immunization Patients Un alysa 20 months Aged Out No longer eligible b ased on patient's age to complete this topic Varicella Vaccines Aged Out No longer eligible based on patient's age to complete this topic
[2025-04-09 13:59] VITALS: BP 108/70; PULSE 77; RESP 14; TEMP 36.9; O2SAT 99; BMI 37.0
== END 2025-04-09 14:29 | disposition home or self-care (01) ==
LOC: HO.HMCFM 13:52
PROVIDERS: PCP Family Medicine; Visit Provider Nurse Practitioner Family
DX: Z20.2 Contact with and (suspected) exposure to infections with a predominantly sexual mode of transmission (principal); N91.2 Amenorrhea, unspecified; N89.8 Other specified noninflammatory disorders of vagina

== ENCOUNTER 2025-04-09 13:51 | Outpatient (REF) | payer OTHER, SELFPAY ==
[2025-04-10 03:29] LABS: Syphilis Screen Nonreactive (Nonreactive)
[2025-04-10 03:30] LABS: CT PCR Urine NOT DETECTED (Not Detect.); NG PCR Urine NOT DETECTED (Not Detect.)
[2025-04-10 03:51] LABS: HIV Num 1 0.05 S/CO (0.00-0.99); ~HepC Num1 0.09 S/CO (0.00-0.79); ~Hepatitis C Antibody Nonreactive (Nonreactive)
== END 2025-04-09 13:52 | disposition home or self-care (01) ==
LOC: HO.WFDLDS 13:51
PROVIDERS: Physician Assistant Medical; PCP Family Medicine; Visit Provider Nurse Practitioner Family
DX: Z20.2 Contact with and (suspected) exposure to infections with a predominantly sexual mode of transmission (principal); N91.2 Amenorrhea, unspecified; N89.8 Other specified noninflammatory disorders of vagina
CPT/HCPCS: 36415; 84702; 86780; 86803; 87389; 87491; 87591

== ENCOUNTER 2025-04-09 14:28 | Outpatient (REF) | payer OTHER, SELFPAY ==
[2025-04-09 18:28] LABS: Appearance Urine Clear; Glucose Urine UA Negative (Negative); PH 7.0 (5.0-9.0); Specific Gravity - Urine 1.015 (1.005-1.025)
== END 2025-04-09 14:29 | disposition home or self-care (01) ==
LOC: HO.LAB 14:28
PROVIDERS: Visit Provider Nurse Practitioner Family
DX: R30.0 Dysuria (principal); Z20.2 Contact with and (suspected) exposure to infections with a predominantly sexual mode of transmission
CPT/HCPCS: 81003

== ENCOUNTER 2025-06-09 08:17 | Outpatient (AMB) | payer OTHER, SELFPAY ==
[2025-06-09 08:21] VITALS: BP 104/78; PULSE 82; BMI 36.3
--- NOTE | 2025-06-09 08:21 | A.OFFVIS_ITS ---
Vital Signs 06/09/25 08:21 Height 5 ft 3 in Weight 205 lb BMI 36.3 BP 104/78 Blood Pressure Location Rt brachial Position Sitting Pulse 82 Pulse Source Monitor Comment Pulse ox malfunction Intake Visit Reasons: 4 mo GERD r/s 04/02 Intake Note: Est pt for mgmt of GERD + fecal abn. CC; Pt denies any concerns pertaining to GERD; however, she does report having some difficulties with BMs. Pt had been doing much better with pre/probiotics as well as fiber. Unfortunately, she had been paying for those out of pocket, and cannot currently afford the out of pocket costs. As such, her condition has regressed to its previous state w/o treatment. 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 Avoid dietary triggers. Try lactose free products. Went over with patient different products available for her to try. Will rule out IBD, celiac, malabsorption. Discussed with patient low FODMAP diet. List of food recommended as well as list of food to avoid given to patient. Patient will follow-up in the office in 4 months. If symptoms continue we will send her for upper endoscopy and colonoscopy. Patient does report occasional acid reflux when eating late at night. Patient was encouraged to stay upright for minimum 3 hours after meals. Patient is agreeable to current plan of care and verbalizes understanding of instructions. She was given the opportunity to ask questions and all questions answered. ? Thank you for allowing me to participate in her care Orders C Reactive Protein Today K58.9 Transglutaminase IgA Today R10.9 Vitamin B12 and Folate Today R19.7 Vitamin D 25-OH (D2 and D3) Today E55.9 TODAY'S VISIT Patient is here today for follow-up. Patient reports that she has been feeling better since she tried to avoid certain food. Patient is no longer drinking milk. It avoiding lactose. Certain cheeses do not bother her like chatter, however patient reports that when she has pizza she will have postprandial diarrhea. Patient states that she is okay with 1slice, however more than 1 slice she will have abdominal cramping and diarrhea. Patient was gave him pre and probiotics and reports that she was doing better. Stop taking couple months ago as they became little crises. Occasional postprandial diarrhea otherwise patient is doing well. Reflux is controlled unless she is eating late at night snack like peanut butter sandwich. Patient is taking her vitamin-D supplement denies dyspepsia, dysphagia or aphasia she denies melena, hematochezia, unintent ional weight loss or ribbon like stools. FOR[facility]LY [facility], [facility] Medical History control counseling ADHD Family history of colonic polyps Diarrhea Macromastia Family History Father Diabetes mellitus Mother IBS (irritable bowel syndrome) Sister No problems noted. Daughter No problems noted. Social History Housing: House Alcohol intake: current Comment: Socially Patient Tobacco Use Status: Never used Tobacco e-Cigarette/Vaping Use: Never Used Second Hand Smoke Exposure: No Substance Use Type: Marijuana service: No Current occupational status: employed Current occupation: [employer] Current occupational exposures/hazards: No Cognitive needs: No Hearing needs: No Vision needs: No Review of Systems Const Denies weight gain and Denies weight loss ENT Reports no additional complaints, Denies dysphagia and Denies odynophagia Card Reports no additional complaints Resp Reports no additional complaints GI Reports abdominal pain (RLQ, LLQ), Denies belching, Denies melena, Denies bloating, Denies change in bowel habits, Reports constipation, Reports GI cramping, Denies dysphagia, Denies excessive flatus, Denies dyspepsia, Reports heartburn (Occasional), Denies diarrhea, Reports loose stools, Denies nausea, Denies odynophagia and Denies vomiting Reports no additional complaints Musc Reports no additional complaints Neuro Reports no additional complaints Psych Reports no additional complaints Endo Reports no additional complaints Physical Exam Vital Signs: Last Vital Signs Pulse 82 06/09/25 08:21 BP 104/78 06/09/25 08:21 BMI result Body Mass Index 36.3 Const General: healthy appearing and no acute distress Nutritional Appearance: obese Orientation/consciousness: patient oriented x3 Resp Effort & Inspection: normal respiratory effort, able to speak in complete sentences, no tracheal deviation and symmetric chest movement Auscultation: clear to auscultation bilaterally Cardio Rate: regular rate GI Inspection: Yes normal to inspection, No distended and Yes obesity Palpation (GI): Soft to palpation, not firm, nontender and No hepatosplenomegaly present Auscultation: normal bowel sounds General: Yes no CVA tenderness Back/Spine/Pelvis Back: no CVA tenderness Skin General skin exam: elasticity normal, turgor normal and dry skin Neuro General: patient oriented x3 Psych Appearance: grossly normal Mental Status: mental status grossly normal Results Reviewed Results Reviewed: Laboratory Tests 09/11/24 09:34 C-Reactive Protein 0.39 Vitamin B12 302 25-OH Vitamin D Total 15 L Folate 12.7 Tiss Transglutamin IgA <1.0 Assessment & Plan Assessment & Plan (1) Diarrhea: Code(s): R19.7 - Diarrhea, unspecified Category: Medical Qualifiers: Diarrhea type: functional diarrhea Qualified Code(s): K59.1 - Functional diarrhea (2) Postprandial diarrhea: Code(s): K52.9 - Noninfective gastroenteritis and colitis, unspecified (3) Left lower quadrant abdominal pain: Code(s): R10.32 - Left lower quadrant pain (4) Right lower quadrant abdominal pain: Code(s): R10.31 - Right lower quadrant pain (5) Gastroesophageal reflux disease: Code(s): K21.9 - Gastro-esophageal reflux disease without esophagitis Qualifiers: Esophagitis presence: esophagitis presence not specified Qualified Code(s): K21.9 - Gastro-esophageal reflux disease without esophagitis (6) Constipation: Code(s): K59.00 - Constipation, unspecified Qualifiers: Constipation type: slow transit constipation Qualified Code(s): K59.01 - Slow transit constipation Plan Patient will try to buy fiber on [employer]. Able to find 500 capsules for 16 dollars. She will purchase pre and probiotics. Dietary changes discussed with the patient. Smaller amounts and more often. Dietary nutrition referral, patient would like to lose weight and wants to know foods that can help her. Patient will follow-up low FODMAP diet as discussed in the past. GERD precautions discussed with patient as well. Avoid eating late at night. Continue vitamin-D daily. Patient will follow-up in our office in 6 months, sooner on as needed basis. She is agreeable to this plan and verbalizes understanding of instructions. She was given the opportunity to ask questions and all questions answered. Thank you for allowing me to participate in her care Orders: Referrals Motion Picture Camera Operator Nutrition Referral E66.9 - Obesity, unspecified Medications: New methylcellulose (laxative) (Citrucel) take it with full glass of water 500 mg PO DAILY 90 tabs 2RF K59.00 - Constipation, unspecified Coding Level of Care Code Est Pt Level 4 (02002) Complex EM visit Add On G2211 Diagnoses Functional diarrhea K59.1 Diarrhea type: functional diarrhea Postprandial diarrhea K52.9 Left lower quadrant abdominal pain R10.32 Right lower quadrant abdominal pain R10.31 Gastroesophageal reflux disease, unspecified whether esophagitis present K21.9 Esophagitis presence: esophagitis presence not specified Slow transit constipation K59.01 Constipation type: slow transit constipation Time Spent (min) 40 Comment 25 minutes spent with patient and additional 15 minutes spent reviewing
== END 2025-06-09 08:53 | disposition home or self-care (01) ==
LOC: HO.HGI 08:18
PROVIDERS: PCP Family Medicine; Visit Provider Nurse Practitioner Family
DX: K59.1 Functional diarrhea (principal); R10.32 Left lower quadrant pain; R10.31 Right lower quadrant pain; K21.9 Gastro-esophageal reflux disease without esophagitis; K59.01 Slow transit constipation
CPT/HCPCS: 99214; G2211

== ENCOUNTER 2025-06-15 12:47 | Outpatient (AMB) | payer OTHER, SELFPAY ==
[2025-06-15 12:58] VITALS: BMI 37.6
--- NOTE | 2025-06-15 12:58 | MHC.AMNUTRGE ---
VS Expanded 06/15/25 12:58 06/15/25 13:13 Height 5 ft 3 in 5 ft 3 in Weight 212 lb 1.355 oz 212 lb BMI 37.6 37.6 Intake Visit Reasons: Obesity, unspecified Allergies Seasonal Allergies Allergy (Unknown, Verified 06/09/25 08:24) Sneezing Nutrition Presentation Details: Pt presents for MNT for obesity Patient reports getting a lot of GI symptoms with a lot of bloating is after consuming dairy and working on choosing lactose free foods food frequency fish: 0/wk fruits: 1/d dairy free : 1-2/d (lactose free , low lactose cheese, yogurt coconut beverages : water, occ sprite, tea physical activity: walking 2 miles every other day Alcohol/smoking:---- BS Monitoring Most Recent Diabetes Results: Cholesterol, (<200) 195 mg/dL 04/30/24 HDL Cholesterol, (>40) 60 mg/dL 04/30/24 Triglycerides, (<150) 74 mg/dL 04/30/24 Creatinine, (0.5-1.4) 0.62 mg/dL 04/30/24 BUN, (9-16) 9 mg/dL 04/30/24 Sodium, (135-145) 140 mmol/L 04/30/24 Potassium, (3.3-5.1) 4.1 mmol/L 04/30/24 Chloride, (96-108) 110 mmol/L H 04/30/24 Carbon Dioxide, (22-29) 22 mmol/L 04/30/24 Calcium, (8.4-10.2) 8.7 mg/dL 04/30/24 AST, (5-31) 17 U/L 04/30/24 ALT, (0-31) 20 U/L 04/30/24 Total Protein, (6.5-8.0) 7.2 g/dL 04/30/24 Albumin, (3.5-5.0) 4.2 g/dL 04/30/24 EKE-Nntvedt-Pk.Jeor Equation Height: 5 ft 3 in Weight: 212 lb Resting Metabolic Rate: 1647.26 Calculated Activity Level: Sedentary Calories Needed to Maintain Weight: 1976.71 Diagnosis Nutrition problem #1: food nutri know defi As related to (etiology) #1: diagnosis As evidenced by (sign/symptom) #1: knowledge deficit of diet PFSH Medical History control counseling ADHD Family history of colonic polyps Diarrhea Macromastia Family History Father Diabetes mellitus Mother IBS (irritable bowel syndrome) Sister No problems noted. Daughter No problems noted. Social History Housing: House Alcohol intake: current Comment: Socially Patient Tobacco Use Status: Never used Tobacco e-Cigarette/Vaping Use: Never Used Second Hand Smoke Exposure: No Substance Use Type: Marijuana service: No Current occupational status: employed Current occupation: [employer] Current occupational exposures/hazards: No Cognitive needs: No Hearing needs: No Vision needs: No Assessment & Plan Assessment & Plan (1) Obese: Code(s): E66.9 - Obesity, unspecified Category: Medical Plan: current wt: 96 kg ( 06/2025 ) est kcal needs as per MSJ: 2000 est protein needs as per 1 g/kg BW: 100 est fluid needs as per 30 ml/kg BW: 2900 Recommended fiber > 12 g /day and gradually increase up to 25-28 g /day or as tolerated Nutrition topics discussed : Reviewed (R), Pt verbalized understanding (V) , not applicable (N/A) R, : Healthy Plate Method Concept: Reviewed dairy containing foods, including breads, daughter is, foods made with butter and other dairy directives) R, V, N/A: Carbohydrates: food sources of carbohydrates, relationship of carbohydrates to blood glucose, fatty liver GI health. Recommended total amount of carbohydrates per meals and snack. Differences between simple carbohydrates and complex carbohydrates R, V, N/A: Lean protein foods including vegan , vegetarian sources of protein. Benefits of protein (including but not limited to healing, nutritional value , benefits in weight loss, glucose control R, V, N/A: Fats : Source of fats, benefits of fats. Difference between saturated and unsaturated fats. Saturated fats and its contribution to inflammation R, V, N/A: Fiber: food sources and role of fiber in the diet (including but not limited to its role as a prebiotic, benefits in constipation, role in IBS , role in glucose control and cholesterol level) R, V, N/A: Hydration: role of hydration and prevention of dehydration or over hydration. Foods and water content. R, V, N/A: Vitamins and Minerals in foods and supplements R, V, N/A: Interpreting food labels, including serving size, macronutrients, vitamins, minerals, allergens, ingredient list , % daily value Patient Instructions: Work on gradually reducing on your total carbohydrates, reduced total carbs to 45 -60 g of carb per meal following healthy plate method choose lactose free foods, read food labels Coding Level of Care Code Nutr Indiv Intake (21588) Diagnoses Obese E66.9 Time Spent (min) 30
--- OUTSIDE RECORDS SUMMARY | 2025-06-15 15:27 | XMS_ITS | Clinical Summary ---
Author Organization [facility] ity Address [address] [place] [address] Care Team Providers Care Acute Care Certified Nursing Assistant Name Role Phone Unavailable Primary Care Provider [...] Cervical Cancer Screening: P ap Smear 2015 HPV Vaccines (1 - 3-dose SCD M series) 2021 Depression Screening 08/12/2024 COVID-19 Vaccine ( - 2023-2 5 season) 2025 Influenza Vaccine (#1) 2025 DTaP,Tdap,and Td Vaccines (2 - Td or Tdap) 05/21/2028 05/21/2018 RSV Immunization Adult Patie nts (1 - 1-dose 75+ series) 2069 HIB Vaccines Aged Out No longer eligi [...]
[2025-06-21 13:33] VITALS: BMI 37.6
== END 2025-06-15 13:41 | disposition home or self-care (01) ==
LOC: HO.ENCR 12:48
PROVIDERS: PCP Family Medicine; Visit Provider Dietitian, Registered
DX: E66.9 Obesity, unspecified (principal)

== ENCOUNTER → 2025-06-15 12:47 | Outpatient (BNVA) | payer OTHER, SELFPAY | PROVIDERS: PCP Family Medicine; Visit Provider Dietitian, Registered | DX: E66.9 Obesity, unspecified (principal) | CPT/HCPCS: 97802 ==